=== PATIENT | male | born 1975 ===

== ENCOUNTER 2019-10-17 15:16 | Emergency (ER) | payer OTHER ==
[~2019-10-17] VITALS: Ht 170.2 cm; Wt 72.7 kg
[2019-10-17 15:20] VITALS: BP 133/94; Ht 170.2 cm; Wt 72.7 kg
[2019-10-17] MEDS ORDERED: COZAAR25 MG (15:21)
[2019-10-17] MEDS ORDERED: ULTRAM50 MG (15:21)
[2019-10-17] MEDS ORDERED: GABAPENTIN100 MG (15:21)
[2019-10-17 17:15] LABS: BASOPHILS 0.2 % (0-2); EOSINOPHILS 1.2 % (0-7); HEMATOCRIT 43.6 % (42.0-54.0); HEMOGLOBIN 15.1 g/dL (13.5-17.5); IMMATURE GRANULOCYTES 0.2 % (0-5); LYMPHOCYTES 43.7 % (15-50); MCH 32.4 pg (26.0-34.0); MCHC 34.6 g/dL (31.0-37.0); MCV 93.6 fL (80.0-100.0); MEAN PLATELET VOLUME 10.2 fL (7.4-10.4); NEUTROPHILS 46.7 % (40-80); PLATELET COUNT 410 10x3/uL (130-400); RBC 4.66 10x6/uL (4.20-6.10); RDW 12.6 % (11.5-14.5); WBC 8.4 10x3/uL (4.8-10.8)
[2019-10-17 17:24] LABS: CALC OSMOLALITY 280 mosm/kg (275-300); CALCIUM 9.7 mg/dL (8.5-10.1); CARBON DIOXIDE 27.7 mmol/L (21.0-32.0); CHLORIDE - SERUM 104 mmol/L (98-107); GLUCOSE 102 mg/dL (74-106); POTASSIUM - SERUM 4.1 mmol/L (3.5-5.1); SODIUM 141 mmol/L (136-145); UREA NITROGEN 12 mg/dL (7-18); eGFR NON AFRICAN AMERICAN 86 mL/min (90-120)
[2019-10-17 17:41] LABS: ALBUMIN 4.4 g/dL (3.4-5.0); ALKALINE PHOSPHATASE 95 U/L (30-120); ALT (SGPT) 46 U/L (10-68); BILIRUBIN - TOTAL 0.42 mg/dL (0.2-1.3); CKMB 0.2 U/L (0.0-3.6); CREATINE KINASE 107 UL (21-232); PROTEIN - SERUM 8.1 g/dL (6.4-8.2); TROPONIN-I < 0.017 ng/mL (0.000-0.060)
== END 2019-10-17 18:35 | disposition home or self-care (01) ==
LOC: D.ER 15:16
PROVIDERS: Family Medicine
DX: J11.1 Influenza due to unidentified influenza virus with other respiratory manifestations (principal); E11.9 Type 2 diabetes mellitus without complications; I10 Essential (primary) hypertension; Z20.828 Contact with and (suspected) exposure to other viral communicable diseases